=== PATIENT | female | born 1955 | race Caucasian/White ===

== ENCOUNTER 2019-07-26 05:47 | Day surgery (SDC) | payer MEDICARE ==
[2019-07-25 13:13] VITALS: BP 141/80
[2019-07-26] VITALS (18 sets, daily range): BP systolic 107–201; BP diastolic 50–103
[~2019-07-26] VITALS: Ht 162.6 cm; Wt 66.2 kg
[2019-07-26] MEDS ORDERED: LACTATED RINGERS 1000ML 1,000 ML IV ONE (06:24)
[2019-07-26] MEDS ORDERED: BUPIVACAINE/PF 0.5% 10ML VIAL ONE (07:12)
[2019-07-26] MEDS ORDERED: LIDOCAINE PF 2% 5ML ABBOJECT ONE (07:48)
[2019-07-26] MEDS ORDERED: SUCCINYLCHOLINE CHLORIDE 20 MG/ML 10 ML VIAL ONE (07:48)
[2019-07-26] MEDS ORDERED: ONDANSETRON HCL 4 MG/2 ML VIAL ONE (07:49)
[2019-07-26] MEDS ORDERED: MIDAZOLAM HCL 1 MG/ML 2ML VIAL ONE (07:49)
[2019-07-26] MEDS ORDERED: PROPOFOL 10 MG/ML 20ML VIAL IV ONE (07:49)
[2019-07-26] MEDS ORDERED: GLYCOPYRROLATE 1 MG/5 ML SYRINGE ONE (07:49)
[2019-07-26] MEDS ORDERED: ROCURONIUM 10MG/1ML SYR 10 MG/ML ML ONE (07:50)
[2019-07-26] MEDS ORDERED: FENTANYL CITRATE PF 50 MCG/1 ML 2ML VIAL ONE (07:50)
[2019-07-26] MEDS ORDERED: NEOSTIGMINE 5MG/5ML SYR IV ONE (07:50)
[2019-07-26] MEDS ORDERED: CEFAZOLIN SODIUM 1 GM VIAL ONE (07:56)
[2019-07-26] MEDS ORDERED: HYDRALAZINE HCL 20 MG/ML VIAL ONE (09:05)
[2019-07-26] MEDS ORDERED: MEPERIDINE-PF 25 MG/ML SYG ONE ×2 (09:12→09:30)
[2019-07-26] MEDS ORDERED: KETOROLAC TROMETHAMINE 30MG/ML ONE (09:23)
--- NOTE | 2019-07-26 10:10 | NUR ---
POST OP RECEIVED PT POST OP. 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 PT IN NO DISTRESS. WILL CONTINUE TO MONITOR PT. PT ORIENTED TO ROOM, CALL LIGHT WITH IN REACH AND CONNECTED TO MONITOR. PT HAS BANDAIDS X4 WITH SCANT BLOOD SHADOW STAINS. BLOOD STAINS OUTLINED WITH INK.
--- NOTE | 2019-07-26 11:10 | NUR ---
DISCHARGE INSTRUCTIONS AND SCRIPT GIVEN TO PATIENT AND SON. BOTH VOICED UNDERSTANDING. PT TAKEN OUT VIA W/C BY SRINIVAS KELLY. PT IN NO DISTRESS AND NO CHANGE TO BANDAID STAINS
== END 2019-07-26 11:10 | disposition home or self-care (01) ==
LOC: DAH 05:47
PROVIDERS: ATTEND Surgery
DX: K80.12 Calculus of gallbladder with acute and chronic cholecystitis without obstruction (principal); Z11.59 Encounter for screening for other viral diseases; I25.10 Atherosclerotic heart disease of native coronary artery without angina pectoris; F17.210 Nicotine dependence, cigarettes, uncomplicated; K21.9 Gastro-esophageal reflux disease without esophagitis; Z98.890 Other specified postprocedural states; Z85.41 Personal history of malignant neoplasm of cervix uteri
CPT/HCPCS: 47562; 96365; A4215; A4221; A4222; A4223; A4450; A4649 ×2; A4663; A4930; C1769 ×3; J0330; J0360; J0690; J1885; J2001; J2175 ×2; J2250; J2405; J2704; J2710; J3010; J3490 ×2; J7030; J7120; U0003; 36415; 87635